=== PATIENT | female | born 1970 | race Caucasian/White ===

== ENCOUNTER 2019-06-16 10:27 | Emergency (ER) | payer BC ==
[2019-06-16 10:47] VITALS: BP 142/87
--- NOTE | 2019-06-16 11:15 | UC ---
Respiratory Complaint HPI - HPI Summary HPI Summary: Pt c/o cough, nasal and chest congestion, malaise, fatigue, X 1 week. Pt states she is "getting worse, not better" - History of Current Complaint Chief Complaint: UCRespiratory Stated Complaint: COUGH,CONGESTION Time Seen by Provider: 06/16/19 10:39 Hx Obtained From: Patient Hx Last Menstrual Period: "about a month and a half ago" ?: No Onset/Duration: Gradual Onset, Lasting Weeks, Still Present Timing: Constant Severity Initially: Mild Severity Currently: Moderate Pain Intensity: 0 Character: Cough: Productive Aggravating Factors: Exertion, Deep Breaths, Recumbent Position Alleviating Factors: Nothing Associated Signs And Symptoms: Positive: Wheezing, URI, Nasal Congestion Related History: Seasonal Allergies - Risk Factors Pulmonary Embolism Risk Factors: Negative Cardiac Risk Factors: Negative Pseudomonas Risk Factors: Negative Tuberculosis Risk Factors: Negative - Allergies/Home Medications Allergies/Adverse Reactions: Allergies Allergy/AdvReac Type Severity Reaction Status Date / Time No Known Allergies Allergy Verified 06/16/19 10:42 Home Medications: Home Medications Ibuprofen TAB* [Advil TAB*] 400 mg PO Q6H PRN 06/16/19 [History Confirmed ] Levothyroxine TAB* [Synthroid 25 MCG TAB*] mcg PO DAILY 06/16/19 [History] Omeprazole CAP (NF) [Prilosec CAP* 20 MG] 20 mg PO DAILY 06/16/19 [History Confirmed 06/16/19] PMH/Surg Hx/FS Hx/Imm Hx Previously Healthy: Yes - Surgical History Surgical History: None - Family History Known Family History: Positive: Cardiac Disease - Social History Occupation: Employed Full-time Lives: With Family Alcohol Use: Weekly Substance Use Type: None Smoking Status (MU): Never Smoked Tobacco Have You Smoked in the Last Year: No - Immunization History Vaccination Up to Date: Yes Review of Systems All Other Systems Reviewed And Are Negative: Yes Constitutional: Positive: Fever, Chills, Fatigue Skin: Positive: Negative Eyes: Positive: Negative ENT: Positive: Sinus Congestion Respiratory: Positive: Shortness Of Breath, Cough Cardiovascular: Positive: Negative Gastrointestinal: Positive: Negative Genitourinary: Positive: Negative Motor: Positive: Negative Neurovascular: Positive: Negative Musculoskeletal: Positive: Negative Neurological: Positive: Negative Psychological: Positive: Negative Is Patient Immunocompromised?: No Physical Exam Triage Information Reviewed: Yes Appearance: Ill-Appearing Vital Signs: Initial Vital Signs Temp 98.8 F 06/16/19 10:38 Pulse 90 06/16/19 10:38 Resp 18 06/16/19 10:38 BP 142/87 06/16/19 10:38 Pulse Ox 98 06/16/19 10:38 Vital Signs Reviewed: Yes Eye Exam: Normal ENT: Positive: Nasal congestion Dental Exam: Normal Neck exam: Normal Respiratory: Positive: Decreased breath sounds, Other: - upper respiratory congestion Cardiovascular Exam: Normal Musculoskeletal Exam: Normal Neurological Exam: Normal Psychological Exam: Normal Skin Exam: Normal Diagnostics - Radiology No standard instances Radiology Interpretation Completed By: Radiologist - MIGUEL Respiratory Course/Dx - Differential Dx/Diagnosis Differential Diagnosis/HQI/PQRI: Bronchitis, Influenza Provider Diagnosis: Bronchitis Discharge ED - Sign-Out/Discharge Documenting (check all that apply): Patient Departure All imaging exams completed and their final reports reviewed: Yes - Discharge Plan Condition: Stable Disposition: HOME Prescriptions: Albuterol HFA INHALER* [Ventolin HFA Inhaler*] 1 - 2 puff INH Q4H PRN #1 mdi PRN Reason: Sob/Wheezing Benzonatate CAP* [Tessalon 100 MG CAP*] 200 mg PO Q8H PRN #30 cap PRN Reason: Cough Codeine Phosphate/Guaifenesin [Guaifen-Codeine 100-10 mg/5 ml] 5 ml PO BEDTIME PRN #20 ml MDD 5 ml PRN Reason: Cough Guaifenesin/Pseudoephedrne HCl [Mucinex D ER 600-60 mg Tablet] 1 each PO Q12H # 14 tab.er.12h predniSONE 20 mg TAB [Deltasone 20 MG TAB*] 60 mg PO DAILY #12 tab Patient Education Materials: Acute Bronchitis (ED) Forms: *Work Release Referrals: Dandy Willett MD [Primary Care Provider] - If Needed - Billing Disposition and Condition Condition: STABLE Disposition: Home - Attestation Statements Provider Attestation: This patient was not seen by me. I was available for consult. Chart reviewed GEORGETTE
== END 2019-06-16 11:51 | disposition home or self-care (01) ==
LOC: UCCORT 10:27
DX: J40 Bronchitis, not specified as acute or chronic (principal); R09.81 Nasal congestion
CPT/HCPCS: 71046; 99202; G0463

== ENCOUNTER 2019-06-26 15:34 | Emergency (ER) | payer BC ==
[2019-06-26 17:23] VITALS: BP 147/94
--- NOTE | 2019-06-26 17:34 | UC ---
Throat Pain/Nasal Miguel A HPI - HPI Summary HPI Summary: 49 y/o female presents to the urgent care for a f/u in his bronchitis. Pt reports she was seen here at the clinic on 06/16/2019 and Dx w/ Bronchitis and Rx Inhaler and Prednisone PO. Symptoms improved for a few days, but when she finished Prednisone, her sinusitis worsen w/ green nasal discharge and moderate PND. Sinus pain w/ pressure is 6/10, dry cough and b/l ear pressure. Pt denies fever, wheezing, dizziness, neck pain, SOB, chest pain, abdominal pain, N/V/d. - History of Current Complaint Chief Complaint: UCGeneralIllness Stated Complaint: SINUS COMPLAINT Time Seen by Provider: 06/26/19 17:19 Hx Obtained From: Patient Hx Last Menstrual Period: last week ?: No Onset/Duration: Gradual Onset, Lasting Weeks - 2 weeks, Still Present, Worse Since - 3 days Severity: Moderate Pain Intensity: 6 Pain Scale Used: 0-10 Numeric Cough: Nonproductive Associated Signs & Symptoms: Positive: Sinus Discomfort, Nasal Discharge - green. Negative: Dysphagia, Wheezing, Fever, Vomiting - Epiglottits Risk Factors Epiglottis Risk Factors: Negative - Allergies/Home Medications Allergies/Adverse Reactions: Allergies Allergy/AdvReac Type Severity Reaction Status Date / Time No Known Allergies Allergy Verified 06/26/19 17:23 Home Medications: Home Medications guaiFENesin 100 mg/5 ml LIQ [Robitussin 100 mg/5ml LIQ] 10 ml PO Q4H PRN [History Confirmed 06/26/19] PMH/Surg Hx/FS Hx/Imm Hx Previously Healthy: Yes Endocrine History: Hypothyroidism GI/ History: Gastroesophageal Reflux - Surgical History Surgical History: None - Family History Known Family History: Positive: Cardiac Disease Family History: hypothyrodism, - Social History Occupation: Employed Full-time Lives: With Family Alcohol Use: Weekly Substance Use Type: None Smoking Status (MU): Never Smoked Tobacco Have You Smoked in the Last Year: No - Immunization History Vaccination Up to Date: Yes Review of Systems All Other Systems Reviewed And Are Negative: Yes Constitutional: Positive: Negative Skin: Positive: Negative Eyes: Positive: Negative ENT: Positive: Nasal Discharge - green, Sinus Congestion, Sinus Pain/Tenderness , Other - moderate PND Respiratory: Positive: Cough - dry Cardiovascular: Positive: Negative Gastrointestinal: Positive: Negative Genitourinary: Positive: Negative Motor: Positive: Negative Neurovascular: Positive: Negative Musculoskeletal: Positive: Negative Neurological: Positive: Headache Psychological: Positive: Negative Is Patient Immunocompromised?: No Physical Exam - Summary Physical Exam Summary: Vitals: reviewed General: Well developed, well-nourished female patient with NAD. Head and face: Normocephalic and atraumatic, Positive tenderness over the frontal and maxillary sinuses.. Eyes: PERRLA, EOMI x 2. Normal conjunctiva. No eye discharge. ENT: Ears and TM with normal limits. Nose: edematous and erythematous nasal mucosa with yellowish discharge and erythematous mucosa. Pharynx with erythema, no exudate. green PND Neck: Supple, no JVD, no carotid bruits and no lymphadenopathy. Lungs: clear, no rales, no rhonchi, no wheezes. CVS: RRR, S1 and S2 present no murmurs or gallops appreciated. Abdomen: soft nontender with positive bowel sounds. Extremities: no edema noted. Neuro: WNL. Skin: warm and dry Triage Information Reviewed: Yes Vital Signs: Initial Vital Signs Temp 99.8 F 06/26/19 17:16 Pulse 88 06/26/19 17:16 Resp 18 06/26/19 17:16 BP 147/94 06/26/19 17:16 Pulse Ox 100 06/26/19 17:16 Throat Pain/Nasal Course/Dx - Course Course Of Treatment: 49 y/o female presents to the urgent care for a f/u in his bronchitis. Pt reports she was seen here at the clinic on 06/16/2019 and Dx w/ Bronchitis and Rx Inhaler and Prednisone PO. Symptoms improved for a few days, but when she finished Prednisone, her sinusitis worsen w/ green nasal discharge and moderate PND. Sinus pain w/ pressure is 6/10, dry cough and b/l ear pressure. Pt denies fever, wheezing, dizziness, neck pain, SOB, chest pain, abdominal pain, N/V/d. Hx obtained. Pt with 2 weeks of symptoms getting worse w/ acute bacterial sinusitis. Pt Rx Amoxicillin PO and advised to continue using flonase nasal spray and saline drops to alleviate symptoms. Pt's BP is elevated today advised to decrease salt in diet, monitor BP and f/u with PCP if BP continues to be elevated for further management. Discharge instructions explained to Pt. Advised to Return to the clinic or PCP if symptoms do not improve.Pt understood and agreed with plan of care. - Differential Dx/Diagnosis Differential Diagnosis/HQI/PQRI: Influenza, Laryngitis, Pharyngitis, Sinusitis, URI, Other - bronchitis, pneumonia Provider Diagnosis: Acute bacterial sinusitis, Elevated BP without diagnosis of hypertension Discharge ED - Sign-Out/Discharge Documenting (check all that apply): Patient Departure - D/c home All imaging exams completed and their final reports reviewed: No Studies - Discharge Plan Condition: Stable Disposition: HOME Prescriptions: Amoxicillin PO (*) [Amoxicillin 875 MG (*)] 875 mg PO BID #20 tab Patient Education Materials: Sinusitis (ED) Referrals: Tamie ROBERTS,Deshaun [Primary Care Provider] - 3 Days Additional Instructions: 1- Please increase fluid intake and rest. take full course of antibiotics to avoid resistance. Take yogurts w/ probiotics or Culturelle to protect your GI system 2-Use Your nasal spray as directed to help drain fluid. Also buy saline drops to clear sinuses 3-Continue taking Mucinex PO to alleviates cough. Increase hydration, and rest 4-Please f/u w/ your PCP in 3 days if symptoms do not improve for further management and treatment 5- Your BP is elevated today advised to decrease salt in diet, monitor BP and f/ u with PCP for further management. - Billing Disposition and Condition Condition: STABLE Disposition: Home
== END 2019-06-26 17:43 | disposition home or self-care (01) ==
LOC: UCCORT 15:34
DX: J01.90 Acute sinusitis, unspecified (principal); B96.89 Other specified bacterial agents as the cause of diseases classified elsewhere
CPT/HCPCS: 99212; G0463